=== PATIENT | female | born 1985 | race Caucasian/White ===

== ENCOUNTER 2017-10-29 12:20 | Emergency (ER) | payer MEDICAID, OTHER ==
[~2017-10-29] VITALS: Ht 167.6 cm; Wt 56.7 kg
--- NOTE | 2017-10-29 12:55 | NUR ---
PT IS IN ROOM #2A. DR MCLAUGHLIN EVALUATED THE PT.
--- NOTE | 2017-10-29 14:28 | NUR ---
PT WAS D/C TO HOME. D/C INSTRUCTIONS GIVEN TO THE PT.
[2017-10-29 14:30] VITALS: BP 129/77
== END 2017-10-29 14:30 | disposition home or self-care (01) ==
LOC: ER 12:24
DX: S69.91XA Unspecified injury of right wrist, hand and finger(s), initial encounter (principal); F17.200 Nicotine dependence, unspecified, uncomplicated; Z88.0 Allergy status to penicillin; W22.01XA Walked into wall, initial encounter; Y93.89 Activity, other specified; Y92.89 Other specified places as the place of occurrence of the external cause; Y99.8 Other external cause status
CPT/HCPCS: 29130; 73140; 99284; A4663

== ENCOUNTER 2018-06-14 18:06 | Emergency (ER) | payer OTHER ==
[~2018-06-14] VITALS: Ht 165.1 cm; Wt 59.0 kg
--- NOTE | 2018-06-14 18:25 | NUR ---
Dr Ruiz at the bedside for MSE.
[2018-06-14 18:40] VITALS: BP 122/81
--- NOTE | 2018-06-14 18:43 | NUR ---
Patient discharged to home in stable conditon. Written and verbal after care instructions given. Patient verbalizes understanding of instructions. Pt left ER w/ steady gait.
== END 2018-06-14 18:44 | disposition home or self-care (01) ==
LOC: ER 18:06
DX: L60.0 Ingrowing nail (principal); F17.200 Nicotine dependence, unspecified, uncomplicated; Z88.0 Allergy status to penicillin
CPT/HCPCS: A4663

== ENCOUNTER 2018-06-17 17:31 | Emergency (ER) | payer OTHER ==
[~2018-06-17] VITALS: Ht 175.3 cm; Wt 59.0 kg
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
--- NOTE | 2018-06-17 18:56 | NUR ---
L GREAT TOE APPEARS RED AND SLIGHTLY EDEMATOUS. WARM TO TOUCH.
--- NOTE | 2018-06-17 19:02 | NUR ---
COLLEEN CRUZ AT BEDSIDE FOR MSE.
[2018-06-17] MEDS ORDERED: MUPIROCIN 2% OINT 22 GM TUBE ONE (19:12)
[2018-06-17] MEDS ORDERED: MUPIROCIN 2% OINT 22 GM TUBE TP ONE (19:15)
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
--- NOTE | 2018-06-17 19:18 | NUR ---
Patient discharged to home in stable conditon. Written and verbal after care instructions given. Patient verbalizes understanding of instructions. ALL BELONGINGS W/ PT. PT SELF-AMBULATED W/O DIFFICULTY.
[2018-06-17 19:20] VITALS: BP 133/72
== END 2018-06-17 19:20 | disposition home or self-care (01) ==
LOC: ER 17:31
DX: L03.032 Cellulitis of left toe (principal); F17.200 Nicotine dependence, unspecified, uncomplicated; Z88.0 Allergy status to penicillin
CPT/HCPCS: A4663

== ENCOUNTER 2019-03-17 22:18 | Emergency (ER) | payer OTHER ==
[~2019-03-17] VITALS: Ht 165.1 cm; Wt 59.0 kg
[2019-03-17] MEDS ORDERED: CIPROFLOXACIN 0.3% OPHT DROP 2.5 ML BOTTLE ONE (22:42)
[2019-03-17] MEDS ORDERED: HYDROCODONE/APAP 10-325 MG TABLET ONE (22:44)
[2019-03-17] MEDS ORDERED: HYDROCODONE/APAP 10-325 MG TABLET PO ONE (22:45)
[2019-03-17] MEDS ORDERED: CIPROFLOXACIN 0.3% OPHT DROP 2.5 ML BOTTLE OP ONE (22:45)
[2019-03-17 22:49] VITALS: BP 118/82
--- NOTE | 2019-03-17 22:49 | NUR ---
Patient discharged to home in stable conditon. Written and verbal after care instructions given. Patient verbalizes understanding of instructions. Pt walked out of ER in stable gait. States she's taking an Uber home. No acute distress noted. VSS.
== END 2019-03-17 22:50 | disposition home or self-care (01) ==
LOC: ER 22:20
DX: H10.89 Other conjunctivitis (principal); F17.290 Nicotine dependence, other tobacco product, uncomplicated; Z88.0 Allergy status to penicillin
CPT/HCPCS: A4663

== ENCOUNTER 2019-06-18 01:24 | Emergency (ER) | payer OTHER ==
[~2019-06-18] VITALS: Ht 165.1 cm; Wt 59.0 kg
--- NOTE | 2019-06-18 02:48 | NUR ---
Dr. Craft at bedside for MSE.
[2019-06-18] MEDS ORDERED: KETOROLAC TROMETHAMINE 60 MG INJ IM ONE ×2 (03:15→03:18)
[2019-06-18] MEDS ORDERED: IBUPROFEN 600 MG TABLET PO ONE (03:30)
[2019-06-18] MEDS ORDERED: IBUPROFEN 600 MG TABLET ONE (03:31)
--- NOTE | 2019-06-18 03:41 | NUR ---
Patient discharged to home in stable conditon. Written and verbal after care instructions given. Patient verbalizes understanding of instructions. Pt ambulated out of ER with steady gait, no acute signs of distress, VSS, all belongings taken.
[2019-06-18 03:42] VITALS: BP 111/74
== END 2019-06-18 03:42 | disposition home or self-care (01) ==
LOC: ER 01:28
DX: M25.551 Pain in right hip (principal); M79.651 Pain in right thigh; F17.200 Nicotine dependence, unspecified, uncomplicated; Z88.0 Allergy status to penicillin; W18.39XA Other fall on same level, initial encounter; Y93.89 Activity, other specified; Y92.89 Other specified places as the place of occurrence of the external cause; Y99.8 Other external cause status
CPT/HCPCS: 72170; 73502; 73551; 99284; J1885; A4663